=== PATIENT | male | born 1940 | race Caucasian/White ===

== ENCOUNTER 2019-06-27 15:34 | Emergency (ER) | payer MEDICARE ==
--- NOTE | 2019-06-27 15:38 | UC ---
Upper Extremity HPI - HPI Summary HPI Summary: 78 yo male presents with right wrist pain since this morning. Pt tells me that he went to grab for a bottle and when he gripped the bottle he felt a shooting pain in his right wrist. Pain has improved, but is still present with extension. He has iced the area and taken aleve for discomfort. He is right handed. Denies numbness or tingling. - History of Current Complaint Stated Complaint: R WRIST PAIN Time Seen by Provider: 06/27/19 15:37 Hx Obtained From: Patient Onset/Duration: Sudden Onset Severity Initially: Moderate Severity Currently: Mild Pain Intensity: 2 Pain Scale Used: 0-10 Numeric - Allergies/Home Medications Allergies/Adverse Reactions: Allergies Allergy/AdvReac Type Severity Reaction Status Date / Time amoxicillin Allergy Rash Verified 06/27/19 15:44 clavulanic acid Allergy Rash Verified 06/27/19 15:52 [From Augmentin] Home Medications: Home Medications Aspirin 1 tab PO DAILY 06/27/19 [History Confirmed 06/27/19] Atenolol 1 tab PO DAILY 06/27/19 [History Confirmed 06/27/19] Carbidopa/Levodop CR 50/200(*) [Sinemet CR 50/200(*)] 2 tab PO TID 06/27/19 [ History Confirmed 06/27/19] Citalopram Hydrobromide [Citalopram HBr] 1 tab PO DAILY 06/27/19 [History Confirmed 06/27/19] Finasteride [Propecia] 1 tab PO DAILY 06/27/19 [History Confirmed 06/27/19] Multivitamin [Multivitamins] 1 tab PO DAILY 06/27/19 [History Confirmed 06/27/19 ] Naproxen Sodium [Aleve] 220 mg PO ONCE PRN 06/27/19 [History Confirmed 06/27/19] Rasagiline Mesylate [Azilect] 1 tab PO QAM 06/27/19 [History Confirmed 06/27/19] Risedronate (NF) [Actonel (NF)] 150 mg PO MONTHLY 06/27/19 [History Confirmed ] Simvastatin [Zocor] 1 tab PO QAM 06/27/19 [History Confirmed 06/27/19] Tamsulosin HCl 1 tab PO DAILY 06/27/19 [History Confirmed 06/27/19] PMH/Surg Hx/FS Hx/Imm Hx - Additional Past Medical History Additional PMH: Colon Cancer TAA HTN Dementia BPH Endocrine History: Dyslipidemia - Surgical History Surgical History: Yes Surgery Procedure, Year, and Place: APPENDECTOMY- - Social History Occupation: Retired Lives: With Family Alcohol Use: Daily Alcohol Amount: 4 OZ/D Substance Use Type: None Smoking Status (MU): Former Smoker Review of Systems All Other Systems Reviewed And Are Negative: Yes Constitutional: Positive: Negative Skin: Positive: Negative Respiratory: Positive: Negative Cardiovascular: Positive: Negative Neurovascular: Positive: Negative Musculoskeletal: Positive: Other: - Right wrist pain Neurological: Positive: Negative Psychological: Positive: Negative Physical Exam - Summary Physical Exam Summary: GENERAL: NAD. WDWN. No pain distress. SKIN: No rashes, sores, lesions, or open wounds. CHEST: No accessory muscle use. Breathing comfortably and in no distress. CV: Pulses intact radial and ulnar. Cap refill <2seconds MSK: RIGHT WRIST: NTTP. Mild pain with extension at midline-radial aspect. Strength 5/5 including sky diver strength. No edema or obvious bony deformities. No snuffbox tenderness. NEURO: Alert. Sensations intact hand and all fingers. PSYCH: Age appropriate behavior. Triage Information Reviewed: Yes Vital Signs: Vital Signs: Temp Pulse Resp BP Pulse Ox 98.7 F 65 18 115/56 95 06/27/19 15:39 06/27/19 15:39 06/27/19 15:39 06/27/19 15:39 06/27/19 15:39 Vital Signs Reviewed: Yes Upper Extremity Course/Dx - Course Course Of Treatment: XR: IMPRESSION: MODERATE TO SEVERE OSTEOARTHRITIC CHANGE IN THE SCAPHOTRAPEZIAL JOINT. Suspect aggravation of arthritis. Pt was placed in a cock up splint and advised to rest, ice, and continue aleve for discomfort. F/u with their Orthopedist if symptoms do not improve by sunday. - Differential Dx/Diagnosis Provider Diagnosis: Right wrist pain Discharge - Sign-Out/Discharge Documenting (check all that apply): Patient Departure All imaging exams completed and their final reports reviewed: Yes - Discharge Plan Condition: Stable Disposition: HOME Prescriptions: Diclofenac 1% GEL (NF) [Voltaren 1% GEL (NF)] 1 applic TOPICAL BID PRN #1 tube PRN Reason: Pain - Moderate Patient Education Materials: Wrist Injury (ED) Referrals: Dean Ortez MD [Primary Care Provider] - Additional Instructions: If you develop a fever, shortness of breath, chest pain, new or worsening symptoms - please call your PCP or go to the ED immediately. 1) Rest, Ice, and continue taking aleve as directed for your discomfort 2) Use the wrist brace for comfort 3) If your pain has not improved by Sunday, please call your Orthopedic doctor to schedule an appointment for further evaluation - Billing Disposition and Condition Condition: STABLE Disposition: Home
--- OUTSIDE RECORDS SUMMARY | 2019-06-27 15:40 | XMS REPORT | Continuity of Care Document ---
:1940 External Reference #:[id number] Author Name Jen Duggan Care Team Providers Name Role Phone Dean Ortez MD Primary Care Physician Unavailable Payers Date Identification Numbers Payment Provider Subscriber Effective: Policy Number: [id number] Medicare Blue Ppo Royce Jordan 2013 Group Number: [id number] [address] PayID: [id number] [place] Gal[place] [address] Expires: 2012 Policy Number: [id number] Medicare Blue Ppo Royce Jordan Group Number: [id number] PO Box Group Name: Ppo BONNIE Galindo [address] PayID: [id number] Effective: 2012 Policy Number: [id number] BS Facets Royce Jordan Expires: 2013 Group Number: [id number] PO Box PayID: [id number] BONNIE Galindo [id number] Problems Active Problems Provider Date Coronary arteriosclerosis Sergey Fowler M.D. Onset: 10/31/2011 Moderate major depression, single episode Adolfo Garner MD Onset: 09/22/2015 Parkinson's disease Adolfo Garner MD Onset: 08/11/2015 Benign essential hypertension Sergey Fowler M.D. Onset: 11/27/2012 Pure hypercholesterolemia Sergey Fowler M.D. Onset: 11/27/2012 Aneurysm of thoracic aorta Sergey Fowler M.D. 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 Hand Dominance Right-handed Tobacco Use Start: Unknown End: Former Cigarette Smoker pt smoked for about 6 Unknown 1 Pack Daily years-quit 44 years ago ETOH Use Currently consumes 4 small drinks daily alcohol Tobacco Use Start: Unknown End: Patient is a former quit age 22 yrs old Unknown smoker Smoking Status Reviewed: 06/17/19 Patient is a former quit age 22 yrs old smoker Exercise Exercises regularly walking daily 20min, Type/Frequency exercise machine at [facility] Allergies, Adverse Reactions, Alerts Active Allergies Reaction Severity Comments Date Amoxicillin rash 07/30/2008 Augmentin Whole body rash per. Dr Ortez notes 10/05/2015 Medications Active Medications SIG Qnty Indications Ordering Provider Date Sinemet CR 2 by mouth in 90tabs G20 Adolfo Garner MD 06/17/2019 50-200mg morning 1 in pm Tablets ER Azilect 1 by mouth every 90tabs Adolfo Garner MD 09/11/2016 1mg Tablets am. Simvastatin 1 po qd Sergey Mariano 11/27/2012 40mg Tablets Raj Fowler Atenolol 1 tablet po q Am 90tabs Sergey Mariano 11/27/2012 25mg Tablets Raj Fowler Risedronate Sodium once a month Dean Ortez, 150mg Tablets Finasteride 1 by mouth every Unknown 1mg Tablets day Aspirin 1 by mouth every Unknown 81mg Tablets day Escitalopram Oxalate 1 by mouth every Unknown 10mg day Tablets Ketoconazole shampoo, prn Unknown 2% Shampoo Tamsulosin HCL 1 po qd Unknown 0.4mg Multivitamins 1 capsule valeria;y 30caps Other Ordering Capsules Provider History Medications Sinemet CR 1 by mouth twice 60tabs G20 Adolfo Garner MD 06/17/2019 - 50-200mg a day 06/17/2019 Tablets ER Sinemet 2 by mouth three 540tabs G20 Adolfo Garner MD 05/28/2017 - 25-100mg times a day 06/17/2019 Tablets Aspirin 1 by mouth every Parth Sahu, 09/26/2016 - 81mg Tablets day DO [facility] 11/27/2016 Azilect 1 in in the 14tabs G20 Adolfo Garner MD 07/27/2016 - 0.5mg Tablets morning for 2 11/27/2016 weeks then go to 1 mg tablets 1 by mouth in in the morning ( pt has not started taking as of 09/26 Irbesartan Take 1/2 tablet Parth Sahu, 10/05/2015 - 150mg daily DO [facility] 01/27/2016 Tablets Sinemet 2 in the morning 450tabs G20 Adolfo Garner MD 08/11/2015 - 25-100mg and 2 at lunch 05/28/2017 Tablets and 1 at bedtime Avapro 1/2 po qd Sergey Mariano 03/12/2013 - 150mg Tablets Raj Fowler 03/12/2013 Avapro 1/2 po qam Sergey Mariano 03/12/2013 - 150mg Tablets Raj Fowler 06/16/2014 Flomax 1 po qd 100caps Sergey Mariano 03/12/2013 - 0.4mg Capsules Raj Fowler 06/16/2014 Avapro 1 po po Sergey Mariano 11/27/2012 - 150mg Tablets Raj Fowler 03/12/2013 Simvastatin 1/2 po qpm Sergey Mariano 03/01/2011 - 40mg Raj Fowler 11/27/2012 Tablets Niaspan 1 qpm #[id number] 100tabs Sergey Mariano 03/16/2010 - 1000mg Tablets Raj Fowler 11/27/2012 ER Niaspan 1/2 tablet po 90tabs Sergey Mariano 03/10/2010 - 1000mg Tablets bid Raj Fowler 03/16/2010 ER Niaspan 1 po bid. Take 180tabs Sergey Mariano 11/26/2009 - 500mg Tablets aspirin 325mg 30 Raj Fowler 03/10/2010 ER min. before to decrease flushing. Simvastatin 1 po qhs 30tabs Sergey Mariano 08/04/2009 - 80mg Raj Fowler 08/04/2009 Tablets Simvastatin 1 po qhs 100tabs Sergey Mariano 08/04/2009 - 40mg Raj Fowler 03/01/2011 Tablets Niaspan 1 tab po qpm, 100tabs Sergey Mariano 08/04/2009 - 500mg Tablets take aspirin Raj Fowler 11/26/2009 ER 325mg 30 minutes before niaspan to decrease flushing Crestor 1 po qd 30tabs Sergey Mariano 12/04/2008 - 20mg Tablets Raj Fowler 08/04/2009 Avapro 1 po qd 90tabs Sergey Mariano 09/09/2008 - 75mg Tablets Raj Fowler 11/27/2012 Atenolol 1 po qd 90tabs Sergey Mariano 07/30/2008 - 25mg Tablets #[id number] Raj Fowler 11/27/2012 Aspirin 1 PO qd Sergey Mariano 07/30/2008 - 325mg Tablets Raj Fowler 06/16/2014 Mometasone Furoate prn Sergey Mariano 07/30/2008 - 0.1% Raj Fowler 09/27/2011 Cream Avapro 1 PO qd 90tabs Sergey Mariano 07/30/2008 - 150mg Tablets Raj Fowler 09/09/2008 Simvastatin 1 PO QHS 90tabs Sergey Mariano 07/30/2008 - 40mg Raj Fowler 12/04/2008 Tablets Vitamin C 1/2 po qd Other Ordering - 100mg Provider 06/17/2014 Chewtabs Meloxicam 1 tab po prn Unknown - 7.5mg 04/28/2017 Irbesartan once daily Unknown - 75mg 10/05/2015 Lorazepam 1 po tid prn Unknown - 1mg Tablets 04/28/2017 Escitalopram Oxalate 1 by mouth every Unknown - day 07/20/2015 10mg Tablets Aspirin 1 by mouth every Unknown - 325mg Tablets day 09/26/2016 DR Patel 1 by mouth every G20 Unknown - 1mg Tablets day 11/26/2016 Vital Signs Date Vital Result Comment 06/17/2019 10:41am Height 69.50 inches 5'9.50" Weight 170.75 lb Heart Rate 68 /min BP Systolic Sitting 128 mmHg BP Diastolic Sitting 72 mmHg Respiratory Rate 20 /min BMI (Body Mass Index) 24.9 kg/m2 10/16/2018 10:47am Height 69.50 inches 5'9.50" Weight 169.00 lb Heart Rate 74 /min BP Systolic 110 mmHg BP Diastolic 62 mmHg BMI (Body Mass Index) 24.6 kg/m2 02/13/2018 9:37am Height 69.50 inches 5'9.50" Weight 160.00 lb Heart Rate 72 /min BP Systolic 124 mmHg BP Diastolic 72 mmHg BMI (Body Mass Index) 23.3 kg/m2 05/28/2017 9:38am Height 69.50 inches 5'9.50" Weight 165.00 lb Heart Rate 80 /min BP Systolic Sitting 122 mmHg BP Diastolic Sitting 70 mmHg BMI (Body Mass Index) 24.0 kg/m2 11/27/2016 10:27am Height 69.50 inches 5'9.50" Weight 160.00 lb Heart Rate 60 /min BP Systolic Sitting 142 mmHg BP Diastolic Sitting 64 mmHg Respiratory Rate 16 /min BMI (Body Mass Index) 23.3 kg/m2 09/26/2016 9:33am Height 69.50 inches 5'9.50" Weight 162.00 lb with out shoes Heart Rate 56 /min BP Systolic Sitting 130 mmHg L arm reg cuff BP Diastolic Sitting 70 mmHg L arm reg cuff BP Systolic Standing 124 mmHg L arm reg cuff BP Diastolic Standing 70 mmHg L arm reg cuff Respiratory Rate 16 /min BMI (Body Mass Index) 23.6 kg/m2 Ejection Fraction 55-60% date 10/23/12 ECHO 07/27/2016 9:39am Height 69 inches 5'9" Weight 156.00 lb Heart Rate 78 /min BP Systolic Sitting 120 mmHg BP Diastolic Sitting 84 mmHg BMI (Body Mass Index) 23.0 kg/m2 01/28/2016 10:40am Height 69 inches 5'9" Weight 156.00 lb Heart Rate 56 /min BP Systolic Sitting 120 mmHg BP Diastolic Sitting 72 mmHg Respiratory Rate 16 /min BMI (Body Mass Index) 23.0 kg/m2 10/05/2015 8:15am Height 69 inches 5'9" Weight 156.00 lb no shoes Heart Rate 58 /min BP Systolic Sitting 108 mmHg LA, reg cuff BP Diastolic Sitting 66 mmHg LA, reg cuff BP Systolic Standing 80 mmHg LA BP Diastolic Standing 46 mmHg LA Respiratory Rate 14 /min BMI (Body Mass Index) 23.0 kg/m2 Ejection Fraction 55-60% 10/23/2012 09/22/2015 12:17pm Height 70 inches 5'10" Weight 160.00 lb Heart Rate 60 /min BP Systolic Sitting 110 mmHg BP Diastolic Sitting 64 mmHg Respiratory Rate 16 /min BMI (Body Mass Index) 23.0 kg/m2 08/11/2015 9:35am Height 70 inches 5'10" Weight 160.00 lb Heart Rate 64 /min BP Systolic Sitting 134 mmHg BP Diastolic Sitting 62 mmHg Respiratory Rate 20 /min BMI (Body Mass Index) 23.0 kg/m2 04/09/2015 9:24am Height 70 inches 5'10" Weight 173.00 lb Heart Rate 56 /min BP Systolic Sitting 136 mmHg BP Diastolic Sitting 72 mmHg Respiratory Rate 16 /min BMI (Body Mass Index) 24.8 kg/m2 03/10/2015 8:29am Height 70 inches 5'10" Weight 174.00 lb Heart Rate 60 /min BP Systolic Sitting 146 mmHg BP Diastolic Sitting 74 mmHg Respiratory Rate 16 /min BMI (Body Mass Index) 25.0 kg/m2 06/17/2014 3:15pm Height 70 inches 5'10" Weight 173.00 lb Heart Rate 57 /min BP Systolic 160 mmHg BP Diastolic 91 mmHg BMI (Body Mass Index) 24.8 kg/m2 01/14/2014 9:17am Height 70 inches 5'10" Weight 175.00 lb Heart Rate 68 /min BP Systolic Sitting 128 mmHg BP Diastolic Sitting 64 mmHg BMI (Body Mass Index) 25.1 kg/m2 03/12/2013 9:44am Height 70 inches 5'10" Weight 178.00 lb Heart Rate 60 /min BP Systolic 130 mmHg BP Diastolic 72 mmHg BMI (Body Mass Index) 25.5 kg/m2 11/27/2012 10:01am Height 70 inches 5'10" Weight 178.00 lb Heart Rate 66 /min BP Systolic 156 mmHg BP Diastolic 84 mmHg Respiratory Rate 16 /min BMI (Body Mass Index) 25.5 kg/m2 09/27/2011 9:14am Height 70 inches 5'10" Weight 172.00 lb Heart Rate 74 /min BP Systolic Sitting 130 mmHg BP Diastolic Sitting 78 mmHg BMI (Body Mass Index) 24.7 kg/m2 09/23/2010 2:43pm Height 70 inches 5'10" Weight 178.00 lb Heart Rate 61 /min BP Systolic Sitting 130 mmHg BP Diastolic Sitting 68 mmHg BMI (Body Mass Index) 25.5 kg/m2 02/10/2010 2:54pm Height 70 inches 5'10" Weight 180.00 lb Heart Rate 62 /min BP Systolic 144 mmHg BP Diastolic 82 mmHg BMI (Body Mass Index) 25.8 kg/m2 08/04/2009 10:07am Height 70 inches 5'10" Weight 179.00 lb Heart Rate 55 /min BP Systolic Sitting 130 mmHg L BP Diastolic Sitting 70 mmHg L BMI (Body Mass Index) 25.7 kg/m2 12/04/2008 9:50am Height 70 inches 5'10" Weight 186.00 lb Heart Rate 61 /min BP Systolic Sitting 130 mmHg L BP Diastolic Sitting 70 mmHg L BMI (Body Mass Index) 26.7 kg/m2 07/30/2008 3:29pm Height 70 inches 5'10" Weight 183.00 lb Heart Rate 87 /min BP Systolic Sitting 170 mmHg L BP Diastolic Sitting 94 mmHg L BMI (Body Mass Index) 26.3 kg/m2 Procedures Date Code Description Status 09/14/2017 65138 ECHO Transthoracic, Real-Time 2D With Doppler And Color Completed Flow 09/14/2017 26757 ECHO Transthoracic, Real-Time 2D With Doppler And Color Completed Flow 09/26/2016 58844 EKG Tracing & Interpretation Completed 10/05/2015 24061 EKG Tracing & Interpretation Completed 01/14/2014 79229 EKG Tracing & Interpretation Completed 03/12/2013 14131 EKG Tracing & Interpretation Completed 11/27/2012 39757 EKG Tracing & Interpretation Completed 10/22/2012 38317 ECHO Transthoracic, Real-Time 2D With Doppler And Color Completed Flow 09/27/2011 86848 EKG Tracing & Interpretation Completed 09/23/2010 80363 EKG Tracing & Interpretation Completed 02/10/2010 07640 EKG Tracing & Interpretation Completed 08/04/2009 28387 EKG Tracing & Interpretation Completed 12/04/2008 02089 EKG Tracing & Interpretation Completed 12/04/2008 15468 EKG Tracing & Interpretation Completed 09/09/2008 62973 ECHO/Stress Completed 09/09/2008 42754 Stress Test Completed 09/09/2008 96556 Stress Test Completed 08/19/2008 71716 Color Doppler Completed 08/19/2008 21111 Color Doppler Completed 08/19/2008 92809 Color Doppler Completed 08/19/2008 73705 Pulse Doppler & Continuous Wave Completed 08/19/2008 63071 Pulse Doppler & Continuous Wave Completed 08/19/2008 11794 Echocardiogram Completed 08/19/2008 61568 Echocardiogram Completed 08/19/2008 11773 Echocardiogram Completed 07/30/2008 20807 EKG Tracing & Interpretation Completed 07/30/2008 64723 EKG Tracing & Interpretation Completed Encounters Type Date Location Provider Dx Diagnosis Office Visit 10/16/2018 [facility] Tyra Hernandez Parkinson's 10:45a disease Office Visit 02/13/2018 [facility] Tyra Hernandez Parkinson's 9:30a disease Office Visit 05/28/2017 [facility] Tyra Hernandez Parkinson's 9:30a disease Office Visit 11/27/2016 [facility] Tyra Hernandez Parkinson's 10:15a disease Office Visit 09/26/2016 [facility] Par[facility] S. R00.1 Bradycardia, 9:40a Jt Sahu DO FACC unspecified I10 Essential (primary) hypertension G20 Parkinson's disease I25.10 Athscl heart disease of [place] coronary artery w/o ang pctrs E78.5 Hyperlipidemia, unspecified Office Visit 07/27/2016 [facility] Tyra Hernandez Parkinson's 9:45a Clinic disease Office Visit 01/28/2016 [facility] Adolfo Garner, G20 Parkinson's 10:30a Services Of Jt NOONAN disease Office Visit 10/05/2015 [facility] Parth S. 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 272.0 Hypercholesterolemia Pure 401.1 Hypertension Benign Office Visit 03/12/2013 10:00a [facility] Sergey Mariano 441.2 Gail Fowler M.D. Thoracic W/O Rupture 414.[address] [facility] 272.0 Hypercholesterolemia Pure Office Visit 11/27/2012 10:00a [facility] Sergey Mariano 441.2 Gail Fowler M.D. Thoracic W/O Rupture 414.[address] [facility] 272.0 Hypercholesterolemia Pure 401.1 Hypertension Benign Office Visit 09/27/2011 Chaitanya Mariano 414.01 Coronary 9:20a Cardiology Raj Fowler Atherosclerosis [facility] 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 W/O Rupture 272.0 Hypercholesterolemia Pure 401.1 Hypertension Benign Office Visit 09/23/2010 Chaitanya Mariano 414.01 Coronary 2:40p Cardiology Raj Fowler Atherosclerosis [facility] 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 W/O Rupture 272.0 Hypercholesterolemia Pure 401.1 Hypertension Benign Office Visit 02/10/2010 Chaitanya Mariano 414.01 Coronary 2:40p Cardiology Raj Fowler Atherosclerosis [facility] 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 W/O Rupture 272.0 Hypercholesterolemia Pure Office Visit 08/04/2009 Chaitanya Mariano 414.01 Coronary 10:00a Cardiology Raj Fowler Atherosclerosis [facility] 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 W/O Rupture 272.0 Hypercholesterolemia Pure 401.1 Hypertension Benign Office Visit 12/04/2008 Chaitanya Mariano 414.01 Coronary 9:40a Cardiology Raj Fowler Atherosclerosis [facility] 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 W/O Rupture 272.0 Hypercholesterolemia Pure 401.1 Hypertension Benign Office 07/30/2008 Chaitanya Mariano 272.0 Hypercholesterolemia Pure Visit 3:40p Cardiology Raj Fowler 401.1 Hypertension Benign 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 W/O Rupture 414.[address] Plan of Treatment Future Appointment(s):12/09/2019 10:45 am - Adolfo Garner MD at [facility]/17/2019 - Adolfo Garner MDG20 Parkinson's diseaseNew Medication:Sinemet CR 50-200 mg - 2 by mouth in morning 1 in pmSinemet CR 50- 200 mg - 1 by mouth twice a dayComments:Parkinsons stable without signficant change adn will continue azilect and switching to long acting sinemet - 2 in am and 1 in pm; he will on occasion forget his mid day dose and then his symptoms are worse. He will call for problems Discussed issues of deep brain stimulator but he is doing well.Follow up:6 to 7 months
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
--- OUTSIDE RECORDS SUMMARY | 2019-06-27 15:40 | XMS REPORT | Continuity of Care Document ---
:1940 External Reference #:[id number] Author Name Jen Duggan Care Team Providers Name Role Phone Dean Ortez MD Primary Care Physician Unavailable Payers Date Identification Numbers Payment Provider Subscriber Effective: Policy Number: [id number] Medicare Blue Ppo Royce Jordan 2013 Group Number: [id number] [address] PayID: [id number] BONNIE Galindo [address] Expires: 2012 Policy Number: [id number] Medicare Blue Ppo Royce Jordan Group Number: [id number] PO Box Group Name: Ppo BONNIE Galindo [address] PayID: [id number] Effective: 2012 Policy Number: [id number] BS Facets Royce Jordan Expires: 2013 Group Number: [id number] [address] PayID: [id number] BONNIE Galindo [address] Problems Active Problems Provider Date Coronary arteriosclerosis [...] Comments Sex Unknown Marital Status Lives [facility] 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 Hand Dominance Right-handed Tobacco Use Start: Unknown [...] walking daily 20min, Type/Frequency exercise machine at [facility] Allergies, Adverse Reactions, Alerts Active Allergies Reaction [...] Sahu, 09/26/2016 - 81mg Tablets day DO [facility] 11/27/2016 Azilect 1 in in the 14tabs G20 Adolfo Garner MD 07/27/2016 - 0.5mg Tablets morning for 2 11/27/2016 weeks then go to 1 mg tablets 1 by mouth in in the morning ( pt has not started taking as of 09/26 Irbesartan Take 1/2 tablet Parth Sahu, 10/05/2015 - 150mg daily DO [facility] 01/27/2016 Tablets Sinemet 2 in the [...] Raj Fowler 11/27/2012 Tablets Niaspan 1 qpm #[id number] 100tabs Sergey Mariano 03/16/2010 - 1000mg Tablets [...] 90tabs Sergey Mariano 07/30/2008 - 25mg Tablets #[id number] Raj Fowler 11/27/2012 Aspirin 1 PO qd [...] kg/m2 Procedures Date Code Description Status 09/14/2017 16638 ECHO Transthoracic, Real-Time 2D With Doppler And Color Completed Flow 09/14/2017 31944 ECHO Transthoracic, Real-Time 2D With Doppler And Color Completed Flow 09/26/2016 15858 EKG Tracing & Interpretation Completed 10/05/2015 06772 EKG Tracing & Interpretation Completed 01/14/2014 33160 EKG Tracing & Interpretation Completed 03/12/2013 67220 EKG Tracing & Interpretation Completed 11/27/2012 28742 EKG Tracing & Interpretation Completed 10/22/2012 22631 ECHO Transthoracic, Real-Time 2D With Doppler And Color Completed Flow 09/27/2011 59968 EKG Tracing & Interpretation Completed 09/23/2010 41077 EKG Tracing & Interpretation Completed 02/10/2010 88513 EKG Tracing & Interpretation Completed 08/04/2009 99226 EKG Tracing & Interpretation Completed 12/04/2008 58037 EKG Tracing & Interpretation Completed 12/04/2008 00783 EKG Tracing & Interpretation Completed 09/09/2008 52830 ECHO/Stress Completed 09/09/2008 46637 Stress Test Completed 09/09/2008 63003 Stress Test Completed 08/19/2008 92041 Color Doppler Completed 08/19/2008 60714 Color Doppler Completed 08/19/2008 47093 Color Doppler Completed 08/19/2008 85884 Pulse Doppler & Continuous Wave Completed 08/19/2008 19461 Pulse Doppler & Continuous Wave Completed 08/19/2008 44170 Echocardiogram Completed 08/19/2008 02170 Echocardiogram Completed 08/19/2008 63124 Echocardiogram Completed 07/30/2008 80570 EKG Tracing & Interpretation Completed 07/30/2008 04474 EKG Tracing & Interpretation Completed Encounters Type Date Location Provider Dx Diagnosis Office Visit 10/16/2018 [facility] Tyra Hernandez Parkinson's 10:45a disease Office Visit 02/13/2018 [facility] Tyra Hernandez Parkinson's 9:30a disease Office Visit 05/28/2017 [facility] Tyra Hernandez Parkinson's 9:30a disease Office Visit 11/27/2016 [facility] Tyra Hernandez Parkinson's 10:15a disease Office Visit 09/26/2016 [facility] Parth S. R00.1 Bradycardia, 9:40a Jt Sahu DO FACC unspecified I10 Essential (primary) hypertension G20 Parkinson's disease I25.10 Athscl heart disease of [place] coronary artery w/o ang pctrs E78.5 Hyperlipidemia, unspecified Office Visit 07/27/2016 [facility] Tyra Hernandez Parkinson's 9:45a Clinic disease Office Visit 01/28/2016 [facility] Adolfo Garner, G20 Parkinson's 10:30a Services Of Jt NOONAN disease Office Visit 10/05/2015 [facility] Parth S. 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 Office Visit 03/10/2015 8:30a [facility] Adolfo Garner, 332.0 Paralysis [facility] MD Amaral 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 Thoracic W/O Rupture 414.01 Coronary Atherosclerosis [facility] 272.0 Hypercholesterolemia Pure Office Visit 11/27/2012 10:00a [facility] Sergey Mariano 441.2 Gail Fowler M.D. 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 W/O Rupture 272.0 Hypercholesterolemia Pure 401.1 Hypertension Benign Office Visit 02/10/2010 Chaitanya Mariano 414.01 Coronary 2:40p Cardiology Raj Fowler Atherosclerosis [facility] 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 W/O Rupture 272.0 Hypercholesterolemia Pure Office Visit 08/04/2009 Chaitanya Mariano 414.01 Coronary 10:00a Cardiology Raj Fowler Atherosclerosis [facility] 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 W/O Rupture 272.0 Hypercholesterolemia Pure 401.1 Hypertension Benign Office Visit 12/04/2008 Chaitanya Mariano 414.01 Coronary 9:40a Cardiology Raj Fowler Atherosclerosis [facility] 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
[2019-06-27 15:44] VITALS: BP 115/56
== END 2019-06-27 16:47 | disposition home or self-care (01) ==
LOC: UCEAST 15:34
DX: M25.531 Pain in right wrist (principal); I10 Essential (primary) hypertension; F03.90 Unspecified dementia, unspecified severity, without behavioral disturbance, psychotic disturbance, mood disturbance, and anxiety; E78.5 Hyperlipidemia, unspecified; Z87.891 Personal history of nicotine dependence; Z85.038 Personal history of other malignant neoplasm of large intestine; Z79.82 Long term (current) use of aspirin
CPT/HCPCS: 99211; G0463

== ENCOUNTER 2023-10-04 11:45 | Observation (INO) ==
[2023-10-04] MEDS ORDERED: NS 0.9% 1000 ml BAG 1,000 ML IV ONE (12:37)
[2023-10-04 13:09] LABS: ABS Lymphocytes 0.6 10^3/uL (1.0-4.8); ABS Monocytes 0.8 10^3/uL (0.0-1.1); ABS Nucleated RBC 0.01 10^3/ul; Eosinophil % 0.5 %; Hematocrit 35.4 % (38-53); Hemoglobin 12.6 g/dL (13.2-16.3); Lymphocyte % 9.9 %; Mean Corpuscular Hemoglobin 34.4 pg (27-33); Mean Corpuscular Hgb Conc 35.6 g/dL (31-36); Mean Corpuscular Volume 96.7 fL (80-97); Mean Platelet Volume 6.2 fL (7.5-11.2); Nucleated Red Blood Cells % 0.2 %/100WBC (0.0-0.8); Platelet Count 253 10^3/uL (150-450); Red Blood Count 3.66 10^6/uL (4.06-5.63); Red Cell Distribution Width 12.2 % (12-17); White Blood Count 6.5 10^3/uL (3.6-10.2)
[2023-10-04 13:28] LABS: Albumin 4.2 g/dL (3.2-5.2); Calcium 8.9 mg/dL (8.6-10.3); Creatinine, Serum 0.62 mg/dL (0.67-1.17); Globulin 2.1 g/dL (2-4); Magnesium 2.1 mg/dL (1.9-2.7); Potassium 4.4 mmol/L (3.5-5.0); Total Bilirubin 2.3 mg/dL (0.2-1.0); Total Protein 6.3 g/dL (6.4-8.9); eGFR CKD-EPI 94.8 (>60)
[2023-10-04 13:49] LABS: TSH Ultra Thyroid Stim Horm 0.89 mcIU/mL (0.34-5.60)
[2023-10-04 16:14] LABS: Urine Appearance Clear; Urine Bilirubin Negative (Negative); Urine Blood Negative (Negative); Urine Color Yellow; Urine Glucose Negative (Negative); Urine Ketones 1+ (Negative); Urine Nitrite Negative (Negative); Urine Protein Negative (Negative); Urine Specific Gravity 1.015 (1.002-1.030); Urine Urobilinogen Negative (Negative)
[2023-10-04] MEDS: ROTIGOTINE 6 MG/24 HR TOPICAL SCH (22:08)
[2023-10-04] MEDS: CMCS:Rivastigmine 1.5 mg CAP (NF) PO SCH (22:58)
[2023-10-04] MEDS: Carbidopa/Levodop CR 50/200 TAB.CR PO SCH (23:14)
[2023-10-05 05:47] LABS: ABS Eosinophils 0.1 10^3/uL (0.0-0.5); ABS Lymphocytes 0.8 10^3/uL (1.0-4.8); ABS Monocytes 0.7 10^3/uL (0.0-1.1); ABS Neutrophils 3.2 10^3/uL (1.5-7.6); ABS Nucleated RBC 0.01 10^3/ul; Eosinophil % 1.9 %; Hematocrit 33.9 % (38-53); Hemoglobin 11.9 g/dL (13.2-16.3); Lymphocyte % 16.1 %; Mean Corpuscular Hemoglobin 34.3 pg (27-33); Mean Corpuscular Hgb Conc 35.1 g/dL (31-36); Mean Corpuscular Volume 97.5 fL (80-97); Nucleated Red Blood Cells % 0.2 %/100WBC (0.0-0.8); Platelet Count 247 10^3/uL (150-450); Red Blood Count 3.48 10^6/uL (4.06-5.63); Red Cell Distribution Width 12.1 % (12-17); White Blood Count 4.8 10^3/uL (3.6-10.2)
[2023-10-05] MEDS: Carbidopa/Levodop CR 50/200 TAB.CR PO SCH ×6 (06:00→20:34)
[2023-10-05 06:03] LABS: Calcium 8.7 mg/dL (8.6-10.3); Creatinine, Serum 0.83 mg/dL (0.67-1.17); Potassium 3.8 mmol/L (3.5-5.0); eGFR CKD-EPI 86.8 (>60)
[2023-10-05 08:54] LABS: Magnesium 2.1 mg/dL (1.9-2.7)
[2023-10-05] MEDS ORDERED: CMCS:Rasagiline 1 mg TAB (NF) PO SCH ×2 (09:00)
[2023-10-05] MEDS: Enoxaparin 40 MG/0.4 ML SYR SUBCUT SCH (10:10)
[2023-10-05] MEDS: CMCS:Rivastigmine 1.5 mg CAP (NF) PO SCH ×2 (10:14→20:34)
[2023-10-05] MEDS: CMCS:Ketoconazole 2 % CREAM (NF) 30 GM TUBE TOPICAL SCH (10:15)
[2023-10-05] MEDS: ROTIGOTINE 6 MG/24 HR TOPICAL SCH (20:39)
[2023-10-06 07:03] LABS: ABS Eosinophils 0.1 10^3/uL (0.0-0.5); ABS Lymphocytes 0.8 10^3/uL (1.0-4.8); ABS Monocytes 0.7 10^3/uL (0.0-1.1); ABS Neutrophils 3.5 10^3/uL (1.5-7.6); Hemoglobin 12.7 g/dL (13.2-16.3); Lymphocyte % 14.8 %; Mean Corpuscular Hemoglobin 33.9 pg (27-33); Mean Corpuscular Hgb Conc 35.2 g/dL (31-36); Mean Corpuscular Volume 96.3 fL (80-97); Mean Platelet Volume 6.1 fL (7.5-11.2); Platelet Count 266 10^3/uL (150-450); Red Blood Count 3.73 10^6/uL (4.06-5.63); Red Cell Distribution Width 12.2 % (12-17); White Blood Count 5.1 10^3/uL (3.6-10.2)
[2023-10-06 07:19] LABS: Albumin 4.1 g/dL (3.2-5.2); Albumin/Globulin Ratio 1.8 (1-3); Calcium 8.7 mg/dL (8.6-10.3); Creatinine, Serum 0.65 mg/dL (0.67-1.17); Globulin 2.3 g/dL (2-4); Potassium 3.9 mmol/L (3.5-5.0); Total Bilirubin 2.1 mg/dL (0.2-1.0); Total Protein 6.4 g/dL (6.4-8.9); eGFR CKD-EPI 93.5 (>60)
[2023-10-06] MEDS: Enoxaparin 40 MG/0.4 ML SYR SUBCUT SCH (08:26)
[2023-10-06] MEDS: CMCS:Ketoconazole 2 % CREAM (NF) 30 GM TUBE TOPICAL SCH (08:27)
[2023-10-06] MEDS: CMCS:Rivastigmine 1.5 mg CAP (NF) PO SCH ×2 (08:27→22:17)
[2023-10-06] MEDS: Carbidopa/Levodop CR 50/200 TAB.CR PO SCH ×6 (08:30→22:17)
[2023-10-06] MEDS: ROTIGOTINE 6 MG/24 HR TOPICAL SCH (22:18)
[2023-10-07] MEDS: Carbidopa/Levodop CR 50/200 TAB.CR PO SCH ×6 (08:00→20:34)
[2023-10-07] MEDS: Enoxaparin 40 MG/0.4 ML SYR SUBCUT SCH (09:30)
[2023-10-07] MEDS: CMCS:Rivastigmine 1.5 mg CAP (NF) PO SCH ×2 (09:31→20:35)
[2023-10-07] MEDS: CMCS:Ketoconazole 2 % CREAM (NF) 30 GM TUBE TOPICAL SCH (09:34)
[2023-10-07 10:48] LABS: ABS Eosinophils 0.1 10^3/uL (0.0-0.5); ABS Lymphocytes 0.7 10^3/uL (1.0-4.8); ABS Monocytes 0.8 10^3/uL (0.0-1.1); ABS Neutrophils 3.3 10^3/uL (1.5-7.6); Eosinophil % 1.4 %; Hematocrit 37.5 % (38-53); Hemoglobin 13.1 g/dL (13.2-16.3); Lymphocyte % 14.2 %; Mean Corpuscular Hemoglobin 33.8 pg (27-33); Mean Corpuscular Volume 96.6 fL (80-97); Nucleated Red Blood Cells % 0.1 %/100WBC (0.0-0.8); Platelet Count 302 10^3/uL (150-450); Red Blood Count 3.88 10^6/uL (4.06-5.63); Red Cell Distribution Width 12.1 % (12-17); White Blood Count 4.8 10^3/uL (3.6-10.2)
[2023-10-07 11:13] LABS: Calcium 9.1 mg/dL (8.6-10.3); Creatinine, Serum 0.69 mg/dL (0.67-1.17); Potassium 4.3 mmol/L (3.5-5.0); eGFR CKD-EPI 91.8 (>60)
[2023-10-07] MEDS: ROTIGOTINE 6 MG/24 HR TOPICAL SCH (20:40)
[2023-10-08] MEDS: Carbidopa/Levodop CR 50/200 TAB.CR PO SCH ×6 (08:29→21:33)
[2023-10-08] MEDS: CMCS:Rivastigmine 1.5 mg CAP (NF) PO SCH ×2 (08:30→21:27)
[2023-10-08] MEDS: Enoxaparin 40 MG/0.4 ML SYR SUBCUT SCH (08:33)
[2023-10-08 08:37] LABS: Calcium 8.9 mg/dL (8.6-10.3); Creatinine, Serum 0.65 mg/dL (0.67-1.17); eGFR CKD-EPI 93.5 (>60)
[2023-10-08 09:09] LABS: ABS Eosinophils 0.1 10^3/uL (0.0-0.5); ABS Lymphocytes 0.6 10^3/uL (1.0-4.8); ABS Monocytes 0.7 10^3/uL (0.0-1.1); ABS Neutrophils 3.4 10^3/uL (1.5-7.6); Eosinophil % 2.1 %; Hematocrit 35.7 % (38-53); Hemoglobin 12.8 g/dL (13.2-16.3); Lymphocyte % 13.2 %; Mean Corpuscular Hemoglobin 34.4 pg (27-33); Mean Corpuscular Hgb Conc 35.9 g/dL (31-36); Mean Corpuscular Volume 95.7 fL (80-97); Mean Platelet Volume 6.2 fL (7.5-11.2); Platelet Count 310 10^3/uL (150-450); Red Blood Count 3.73 10^6/uL (4.06-5.63); White Blood Count 4.8 10^3/uL (3.6-10.2)
[2023-10-08] MEDS: CMCS:Ketoconazole 2 % CREAM (NF) 30 GM TUBE TOPICAL SCH (11:05)
[2023-10-08 12:48] LABS: Rapid COVID-19 Molecular Undetected (Undetected)
[2023-10-08] MEDS: ROTIGOTINE 6 MG/24 HR TOPICAL SCH (21:26)
[2023-10-08] MEDS: Magnesium Hydroxide LIQ 30 ML UDC PO PRN (22:04)
[2023-10-09] MEDS: Magnesium Hydroxide LIQ 30 ML UDC PO PRN (05:23)
[2023-10-09] MEDS ORDERED: Lactulose 30 ml UDC PO ONE (08:58)
[2023-10-09] MEDS: Carbidopa/Levodop CR 50/200 TAB.CR PO SCH ×3 (09:25→13:28)
[2023-10-09] MEDS: CMCS:Rivastigmine 1.5 mg CAP (NF) PO SCH (09:28)
[2023-10-09] MEDS: CMCS:Ketoconazole 2 % CREAM (NF) 30 GM TUBE TOPICAL SCH (09:29)
[2023-10-09] MEDS: Enoxaparin 40 MG/0.4 ML SYR SUBCUT SCH (09:32)
[2023-10-09 10:41] VITALS: BP 107/67
== END 2023-10-09 13:10 ==
LOC: ED 11:45 → EDHOLD 11:45 → SUATTDRO 20:27 → MED 23:11 → EDHOLD 23:18 → SSU 10-05 00:30
PROVIDERS: ADMIT Internal Medicine; ATTEND Student in an Organized Health Care Education/Training Program